=== PATIENT | female | born 1945 | race African-American/Black ===

== ENCOUNTER 2021-01-12 03:46 | Inpatient (IN) | payer MEDICARE ==
[2021-01-12] MEDS ORDERED: Aspirin 300 MG Suppository ONE (04:47)
[2021-01-12 05:20] LABS: #Basophils 0.1 thou/uL (0.0-0.2); #Eosinphils 0.2 thou/uL (0.0-0.7); #Lymphocytes 3.1 thou/uL (1.20-3.40); #Monocytes 0.5 thou/uL (0.11-0.59); #Neutrophils 4.3 thou/uL (1.40-6.50); %Basophils 0.7 % (0.0-1.0); %Eosinophils 2.7 % (0.0-10.0); %Lymphocytes 37.8 % (21.0-51.0); %Monocytes 6.1 % (0.0-10.0); %Neutrophils 52.7 % (42.0-75.0); Hemoglobin 13.3 g/dL (12.0-16.0); Mean Corpuscular HGB CONC 32.2 g/dL (32.0-36.0); Mean Corpuscular Hemoglobin 30.2 pg (27.0-31.0); Mean Corpuscular Volume 93.8 fL (78.0-98.0); Platelet Count 250 thou/uL (130-400); RBC Distribution Width 12.5 % (11.5-14.5); White Blood Cell (WBC) Count 8.1 thou/uL (4.8-10.8)
[2021-01-12 05:30] LABS: Prothrombin Time 12.8 sec (12.0-14.7)
[2021-01-12 05:31] LABS: PTT 29.4 sec (22.9-36.1)
[2021-01-12 05:49] LABS: ALT (SGPT) 8 U/L (8-55); AST (SGOT) 10 U/L (5-34); Alkaline Phosphatase 115 U/L (40-110); Anion Gap 14 mmol/L (10-20); BUN (Urea Nitrogen) 23 mg/dL (9.8-20.1); Bilirubin, Total 0.2 mg/dL (0.2-1.2); Calc. Creatinine Clearance 0 mL/min (70-130); Calcium 9.2 mg/dL (7.8-10.44); Carbon Dioxide 25 mmol/L (23-31); Chloride 105 mmol/L (98-107); Globulin 3.4 g/dL (2.4-3.5); Glucose 83 mg/dL (83-110); Potassium 4.3 mmol/L (3.5-5.1); Protein, Total 7.4 g/dL (5.8-8.1); Sodium 140 mmol/L (136-145)
[2021-01-12 06:09] LABS: CKMB 1.6 ng/mL (0-6.6)
[2021-01-12 08:09] LABS: Bilirubin Negative (Negative); Blood, Urine Negative (Negative); Clarity Clear (Clear); Glucose, Urine (Dipstick) Normal (Negative); Ketone, Urine Negative (Negative); Leukocyte Negative Leu/uL (Negative); Nitrite Negative (Negative); Protein, Urine (Dipstick) Negative (Neg-Trace); Specific Gravity, Urine 1.013 (1.002-1.036); Urobilinogen Normal mg/dL (Less than 2)
[2021-01-12] MEDS ORDERED: Acetaminophen 325 MG TAB PO PRN (09:05)
[2021-01-12] MEDS ORDERED: hydrALAZINE 20 MG/ML VIAL SLOW IVP PRN (09:08)
[2021-01-12] MEDS ORDERED: Dextrose 5% in Water 1,000 ML IV PRN (09:11)
[2021-01-12] MEDS ORDERED: Dextrose 50% Abboject 50 ML SYRINGE SLOW IVP PRN (09:11)
[2021-01-12] MEDS ORDERED: HumaLOG 300 UNITS/3 ML VIAL SC PRN (09:11)
[2021-01-12 09:23] LABS: SARS-CoV-2 NAA Rapid Test Not Detected (NotDetected)
[2021-01-12 10:58] LABS: Troponin I 0.048 ng/mL (< 0.028)
[2021-01-12 13:53] LABS: Troponin I 0.031 ng/mL (< 0.028)
[2021-01-12] MEDS: metFORMIN 500 MG TAB PO SCH (18:20)
[2021-01-12] MEDS: Lisinopril 20 MG TAB PO SCH (20:38)
[2021-01-12] MEDS: Amlodipine 5 MG TAB PO SCH (20:38)
[2021-01-12] MEDS ORDERED: Atorvastatin Calcium 40 MG TAB PO SCH (21:00)
[2021-01-13] MEDS ORDERED: Levothyroxine Sodium 50 MCG TAB PO SCH (06:00)
[2021-01-13 06:42] LABS: Cardiac Risk 4.3 (Less than 4.5)
[2021-01-13] MEDS ORDERED: Lisinopril 20 MG TAB PO SCH (09:00)
[2021-01-13] MEDS: Amlodipine 5 MG TAB PO SCH ×2 (09:05→20:51)
[2021-01-13] MEDS: Aspirin 81 mg Enteric Coated Tablet PO SCH (09:05)
[2021-01-13] MEDS: metFORMIN 500 MG TAB PO SCH ×2 (09:05→16:28)
[2021-01-13] MEDS: Lisinopril 20 MG TAB PO SCH ×2 (09:05→20:51)
[2021-01-13 11:04] LABS: Anion Gap 13 mmol/L (10-20); BUN (Urea Nitrogen) 22 mg/dL (9.8-20.1); Calc. Creatinine Clearance 44 mL/min (70-130); Calcium 9.3 mg/dL (7.8-10.44); Carbon Dioxide 24 mmol/L (23-31); Chloride 105 mmol/L (98-107); Glucose 125 mg/dL (83-110); Potassium 4.3 mmol/L (3.5-5.1); Sodium 138 mmol/L (136-145)
[2021-01-13] MEDS ORDERED: hydrALAZINE 20 MG/ML VIAL SLOW IVP SCH (11:15)
[2021-01-13] MEDS: Sodium Chloride 0.9% 1,000 ML IV SCH (14:20)
[2021-01-13] MEDS ORDERED: hydrALAZINE 20 MG/ML VIAL SLOW IVP PRN (15:00)
[2021-01-13] MEDS: hydrALAZINE 25 MG TAB PO SCH (20:51)
[2021-01-14] MEDS: Sodium Chloride 0.9% 1,000 ML IV SCH (03:17)
[2021-01-14] MEDS ORDERED: Levothyroxine Sodium 50 MCG TAB PO SCH (06:00)
[2021-01-14] MEDS ORDERED: glipiZIDE 5 MG TAB PO SCH (07:30)
[2021-01-14] MEDS ORDERED: metFORMIN 500 MG TAB PO SCH (08:00)
[2021-01-14 08:23] LABS: Anion Gap 10 mmol/L (10-20); BUN (Urea Nitrogen) 18 mg/dL (9.8-20.1); Calc. Creatinine Clearance 50 mL/min (70-130); Calcium 8.9 mg/dL (7.8-10.44); Carbon Dioxide 27 mmol/L (23-31); Chloride 107 mmol/L (98-107); Glucose 78 mg/dL (83-110); Sodium 140 mmol/L (136-145)
[2021-01-14] MEDS ORDERED: Atorvastatin Calcium 40 MG TAB PO SCH (09:00)
[2021-01-14] MEDS ORDERED: Clopidogrel Bisulfate 75 MG TAB PO SCH (09:00)
[2021-01-14] MEDS: hydrALAZINE 25 MG TAB PO SCH (09:30)
[2021-01-14] MEDS: Amlodipine 5 MG TAB PO SCH (09:30)
[2021-01-14] MEDS: Aspirin 81 mg Enteric Coated Tablet PO SCH (09:30)
[2021-01-14] MEDS: Lisinopril 20 MG TAB PO SCH (09:31)
[2021-01-14 16:22] VITALS: TEMP 98.1
[2021-01-14 16:37] VITALS: BP 143/57
== END 2021-01-14 17:35 | disposition home or self-care (01) | DRG 69 ==
LOC: ERS 03:46 → ERHOLD 08:10 → 3SE 15:20 → OBSVTOIN 01-14 16:02
PROVIDERS: ADMIT Internal Medicine; ATTEND Internal Medicine
DX: G45.9 Transient cerebral ischemic attack, unspecified (principal); I10 Essential (primary) hypertension; R13.10 Dysphagia, unspecified; K22.2 Esophageal obstruction; N28.9 Disorder of kidney and ureter, unspecified; E03.9 Hypothyroidism, unspecified; E11.51 Type 2 diabetes mellitus with diabetic peripheral angiopathy without gangrene; Z20.822 Contact with and (suspected) exposure to COVID-19; I95.1 Orthostatic hypotension; Z86.73 Personal history of transient ischemic attack (TIA), and cerebral infarction without residual deficits; Z90.49 Acquired absence of other specified parts of digestive tract; Z98.890 Other specified postprocedural states; Z87.891 Personal history of nicotine dependence; Z85.89 Personal history of malignant neoplasm of other organs and systems; Z79.84 Long term (current) use of oral hypoglycemic drugs; Z79.82 Long term (current) use of aspirin; Z79.899 Other long term (current) drug therapy; Z85.818 Personal history of malignant neoplasm of other sites of lip, oral cavity, and pharynx; Z92.3 Personal history of irradiation
CPT/HCPCS: 36415; 36416; 70450; 70551; 71045; 76770; 80048; 80053; 80061; 81003; 82553; 83036; 84443; 84484; 85025; 85610; 85730; 93005; 93306; 93880; 96374; G0378; J0360; J7050; U0002

== ENCOUNTER 2021-01-19 09:26 | Inpatient (IN) | payer MEDICARE ==
[2021-01-19] MEDS ORDERED: Labetalol HCl 100 MG/20 ML VIAL ONE (09:40)
[2021-01-19] MEDS ORDERED: Lisinopril 10 MG TAB ONE (09:51)
[2021-01-19 10:59] LABS: Mean Corpuscular HGB CONC 32.3 g/dL (32.0-36.0); Mean Corpuscular Hemoglobin 30.2 pg (27.0-31.0); Mean Corpuscular Volume 93.3 fL (78.0-98.0); Mean Platelet Volume 9.1 fL (7.4-10.4); Platelet Count 193 thou/uL (130-400); RBC Distribution Width 12.4 % (11.5-14.5); White Blood Cell (WBC) Count 6.6 thou/uL (4.8-10.8)
[2021-01-19 11:15] LABS: CKMB 1.1 ng/mL (0-6.6)
[2021-01-19 11:24] LABS: Eosinophils 5 % (0-10); Lymphocytes 26 % (21-51); MDiff Complete? YES; Monocytes 6 % (0-10); Neutrophil 62 % (42-75); Platelet Morphology Comment Appears Adequate; RBC Morphology Normal
[2021-01-19 12:32] LABS: ALT (SGPT) 13 U/L (8-55); AST (SGOT) 21 U/L (5-34); Albumin 4.1 g/dL (3.4-4.8); Alkaline Phosphatase 118 U/L (40-110); Anion Gap 17 mmol/L (10-20); BUN (Urea Nitrogen) 23 mg/dL (9.8-20.1); Bilirubin, Total 0.3 mg/dL (0.2-1.2); Calc. Creatinine Clearance 0 mL/min (70-130); Calcium 8.9 mg/dL (7.8-10.44); Carbon Dioxide 20 mmol/L (23-31); Chloride 106 mmol/L (98-107); Globulin 4.3 g/dL (2.4-3.5); Glucose 103 mg/dL (83-110); Potassium 6.4 mmol/L (3.5-5.1); Protein, Total 8.4 g/dL (5.8-8.1); Sodium 137 mmol/L (136-145)
[2021-01-19 12:59] LABS: Bilirubin Negative (Negative); Blood, Urine Negative (Negative); Clarity Clear (Clear); Glucose, Urine (Dipstick) Normal (Negative); Ketone, Urine Negative (Negative); Leukocyte Negative Leu/uL (Negative); Nitrite Negative (Negative); Protein, Urine (Dipstick) Negative (Neg-Trace); Specific Gravity, Urine 1.008 (1.002-1.036); Urobilinogen Normal mg/dL (Less than 2)
[2021-01-19 13:26] LABS: Actual Bicarbonate (HCO3v) 25 mEq/L (22-28); Analyzer IN Cardio ER; Base Excess -0.9 mEq/L (-2.0 to +3.0); Calcium, Ionized (venous) 1.11 mmol/L (1.16-1.32); Chloride (VBG) 105 mmol/L (98-106); Hemoglobin (Hb) 14.1 g/dL (11.7-16.1); Potassium (VBG) 4.11 mmol/L (3.70-5.30); Sodium 139.7 mmol/L (133-146); pH (venous) 7.35 (7.32-7.43)
[2021-01-19 14:09] LABS: Anion Gap 12 mmol/L (10-20); BUN (Urea Nitrogen) 21 mg/dL (9.8-20.1); Calc. Creatinine Clearance 0 mL/min (70-130); Calcium 9.3 mg/dL (7.8-10.44); Carbon Dioxide 27 mmol/L (23-31); Chloride 105 mmol/L (98-107); Glucose 107 mg/dL (83-110); Potassium 4.3 mmol/L (3.5-5.1); Sodium 140 mmol/L (136-145)
[2021-01-19] MEDS ORDERED: Enoxaparin Sodium 40 MG/0.4 ML SYRINGE SC SCH (14:15)
[2021-01-19] MEDS ORDERED: Clopidogrel Bisulfate 75 MG TAB PO SCH (15:15)
[2021-01-19] MEDS ORDERED: Aspirin 81 mg Enteric Coated Tablet PO SCH (15:15)
[2021-01-19 15:25] LABS: Troponin I 0.045 ng/mL (< 0.028)
[2021-01-19 15:39] LABS: Free T4 (Free Thyroxine) 0.95 ng/dL (0.70-1.48)
[2021-01-19 18:10] VITALS: BMI 24.7
[2021-01-19 18:17] LABS: Troponin I 0.037 ng/mL (< 0.028)
[2021-01-19] MEDS: Sodium Chloride 0.9% 1,000 ML IV SCH (18:34)
[2021-01-19] MEDS: Lisinopril 20 MG TAB PO SCH (20:24)
[2021-01-19] MEDS: Amlodipine 5 MG TAB PO SCH (20:25)
[2021-01-20] MEDS: Sodium Chloride 0.9% 1,000 ML IV SCH ×2 (00:51→11:14)
[2021-01-20 05:35] LABS: Anion Gap 12 mmol/L (10-20); BUN (Urea Nitrogen) 22 mg/dL (9.8-20.1); Calc. Creatinine Clearance 46 mL/min (70-130); Calcium 8.8 mg/dL (7.8-10.44); Carbon Dioxide 23 mmol/L (23-31); Cardiac Risk 3.4 (Less than 4.5); Chloride 109 mmol/L (98-107); Cholesterol 143 mg/dl (< 200 Desired); Glucose 108 mg/dL (83-110); HDL Cholesterol 42 mg/dL (>60 Neg Risk); LDL Cholesterol, Calculated 86 mg/dL; Potassium 3.8 mmol/L (3.5-5.1); Sodium 140 mmol/L (136-145); Triglycerides 74 mg/dL (Less than 150)
[2021-01-20] MEDS: Levothyroxine Sodium 75 MCG TAB PO SCH (05:51)
[2021-01-20] MEDS ORDERED: FLU VACC QS2021-22(65YR UP)/PF 240 MCG/0.7 ML SYRINGE IM ONE (09:00)
[2021-01-20] MEDS: Clopidogrel Bisulfate 75 MG TAB PO SCH (09:19)
[2021-01-20] MEDS: Lisinopril 20 MG TAB PO SCH ×2 (09:19→21:22)
[2021-01-20] MEDS: Aspirin 81 mg Enteric Coated Tablet PO SCH (09:19)
[2021-01-20] MEDS: Amlodipine 5 MG TAB PO SCH ×2 (09:19→21:22)
[2021-01-20] MEDS: Atorvastatin Calcium 40 MG TAB PO SCH (09:19)
[2021-01-20] MEDS: Enoxaparin Sodium 40 MG/0.4 ML SYRINGE SC SCH (09:20)
[2021-01-20 13:33] LABS: SARS-CoV-2 PCR by NAA Not Detected (NotDetected)
[2021-01-20] MEDS ORDERED: hydrALAZINE 25 MG TAB PO PRN (15:00)
[2021-01-20] MEDS: hydrALAZINE 20 MG/ML VIAL SLOW IVP PRN (19:41)
[2021-01-21] MEDS: Levothyroxine Sodium 75 MCG TAB PO SCH (05:40)
[2021-01-21] MEDS: Atorvastatin Calcium 40 MG TAB PO SCH (10:31)
[2021-01-21] MEDS: Lisinopril 20 MG TAB PO SCH ×2 (10:31→20:12)
[2021-01-21] MEDS: Aspirin 81 mg Enteric Coated Tablet PO SCH (10:31)
[2021-01-21] MEDS: Amlodipine 5 MG TAB PO SCH (10:31)
[2021-01-21] MEDS: Enoxaparin Sodium 40 MG/0.4 ML SYRINGE SC SCH (10:32)
[2021-01-21] MEDS: Clopidogrel Bisulfate 75 MG TAB PO SCH (10:32)
[2021-01-21] MEDS ORDERED: Iopamidol-370 76% 500 ML 1 ML ONE (11:09)
[2021-01-21] MEDS: hydrALAZINE 20 MG/ML VIAL SLOW IVP PRN (11:38)
[2021-01-21] MEDS ORDERED: NIFEdipine XL 60 MG TAB PO SCH (11:45)
[2021-01-21] MEDS: NIFEdipine XL 60 MG TAB PO SCH (12:05)
[2021-01-21 13:38] LABS: #Eosinphils 0.1 thou/uL (0.0-0.7); #Lymphocytes 2.1 thou/uL (1.20-3.40); #Monocytes 0.4 thou/uL (0.11-0.59); #Neutrophils 4.5 thou/uL (1.40-6.50); %Basophils 0.7 % (0.0-1.0); %Eosinophils 1.7 % (0.0-10.0); %Lymphocytes 29.2 % (21.0-51.0); %Monocytes 5.8 % (0.0-10.0); %Neutrophils 62.6 % (42.0-75.0); Hemoglobin 13.4 g/dL (12.0-16.0); Mean Corpuscular HGB CONC 32.4 g/dL (32.0-36.0); Mean Corpuscular Hemoglobin 30.6 pg (27.0-31.0); Mean Corpuscular Volume 94.3 fL (78.0-98.0); Platelet Count 251 thou/uL (130-400); RBC Distribution Width 12.4 % (11.5-14.5); Red Blood Cell (RBC) Count 4.39 mill/uL (4.20-5.40); White Blood Cell (WBC) Count 7.1 thou/uL (4.8-10.8)
[2021-01-21 13:53] LABS: PTT 37.6 sec (22.9-36.1); Prothrombin Time 13.5 sec (12.0-14.7)
[2021-01-21 14:15] LABS: ALT (SGPT) 12 U/L (8-55); AST (SGOT) 14 U/L (5-34); Alkaline Phosphatase 133 U/L (40-110); Anion Gap 16 mmol/L (10-20); BUN (Urea Nitrogen) 20 mg/dL (9.8-20.1); Bilirubin, Total 0.4 mg/dL (0.2-1.2); CK (CPK) 97 U/L (29-168); Calc. Creatinine Clearance 44 mL/min (70-130); Calcium 9.1 mg/dL (7.8-10.44); Carbon Dioxide 21 mmol/L (23-31); Chloride 106 mmol/L (98-107); Globulin 3.4 g/dL (2.4-3.5); Glucose 108 mg/dL (83-110); Potassium 3.9 mmol/L (3.5-5.1); Protein, Total 7.4 g/dL (5.8-8.1); Sodium 139 mmol/L (136-145)
[2021-01-21 14:18] LABS: CKMB 1.4 ng/mL (0-6.6)
[2021-01-21] MEDS ORDERED: hydrALAZINE 20 MG/ML VIAL SLOW IVP PRN (15:53)
[2021-01-22] MEDS: Levothyroxine Sodium 75 MCG TAB PO SCH (05:05)
[2021-01-22] MEDS: Clopidogrel Bisulfate 75 MG TAB PO SCH (09:12)
[2021-01-22] MEDS: Aspirin 81 mg Enteric Coated Tablet PO SCH (09:12)
[2021-01-22] MEDS: NIFEdipine XL 60 MG TAB PO SCH (09:12)
[2021-01-22] MEDS: Atorvastatin Calcium 40 MG TAB PO SCH (09:12)
[2021-01-22] MEDS: Enoxaparin Sodium 40 MG/0.4 ML SYRINGE SC SCH (09:13)
[2021-01-22] MEDS: Lisinopril 20 MG TAB PO SCH ×2 (09:13→20:46)
[2021-01-23] MEDS: Levothyroxine Sodium 75 MCG TAB PO SCH (05:26)
[2021-01-23] MEDS ORDERED: Lisinopril 20 MG TAB PO SCH (09:00)
[2021-01-23] MEDS: Aspirin 81 mg Enteric Coated Tablet PO SCH (09:21)
[2021-01-23] MEDS: Clopidogrel Bisulfate 75 MG TAB PO SCH (09:21)
[2021-01-23] MEDS: NIFEdipine XL 60 MG TAB PO SCH (09:21)
[2021-01-23] MEDS: Enoxaparin Sodium 40 MG/0.4 ML SYRINGE SC SCH (09:21)
[2021-01-23] MEDS: Atorvastatin Calcium 40 MG TAB PO SCH (09:21)
[2021-01-23 09:40] VITALS: TEMP 97.6
[2021-01-23 12:00] VITALS: BP 168/86
== END 2021-01-23 11:50 | disposition home or self-care (01) | DRG 305 ==
LOC: ERS 09:26 → 2NO 16:55 → OBSVTOIN 01-20 15:52
PROVIDERS: ADMIT Internal Medicine; ATTEND Internal Medicine
DX: I16.1 Hypertensive emergency (principal); N17.9 Acute kidney failure, unspecified; G45.9 Transient cerebral ischemic attack, unspecified; I65.22 Occlusion and stenosis of left carotid artery; E11.9 Type 2 diabetes mellitus without complications; R13.10 Dysphagia, unspecified; I10 Essential (primary) hypertension; Z20.822 Contact with and (suspected) exposure to COVID-19; E87.5 Hyperkalemia; I70.1 Atherosclerosis of renal artery; I95.9 Hypotension, unspecified; Z85.9 Personal history of malignant neoplasm, unspecified; Z79.899 Other long term (current) drug therapy; Z79.01 Long term (current) use of anticoagulants; Z79.84 Long term (current) use of oral hypoglycemic drugs; Z79.82 Long term (current) use of aspirin; Z79.890 Hormone replacement therapy; Z90.49 Acquired absence of other specified parts of digestive tract; Z87.891 Personal history of nicotine dependence; Z85.818 Personal history of malignant neoplasm of other sites of lip, oral cavity, and pharynx; Z92.3 Personal history of irradiation
CPT/HCPCS: 36415; 36416; 70450; 70551; 71045; 74174; 76770; 80048; 80053; 80061; 81003; 82550; 82553; 82805; 84439; 84443; 84481; 84484; 85025; 85610; 85730; 93005; 93010; 93975; 96372; 96374; G0378; J0360; J1650; J7050; Q9967; U0003; U0005

== ENCOUNTER 2021-09-05 13:41 | Emergency (ER) | payer OTHER, MEDICARE | END 2021-09-05 14:25 | disposition home or self-care (01) | LOC: ERS 13:41 | DX: Z04.1 Encounter for examination and observation following transport accident (principal); E11.9 Type 2 diabetes mellitus without complications; I10 Essential (primary) hypertension; Z79.899 Other long term (current) drug therapy | CPT/HCPCS: 99283 ==